=== PATIENT | female | born 1960 | race Caucasian/White ===

== ENCOUNTER → 2018-12-04 | Outpatient (CLI) | payer BC | LOC: M SMT 09:06 | PROVIDERS: ATTEND Specialist | DX: Z13.79 Encounter for other screening for genetic and chromosomal anomalies (principal) ==

== ENCOUNTER 2019-01-05 14:35 | Day surgery (SDC) | payer BC ==
[~2019-01-05] VITALS: Ht 175.3 cm; Wt 122.9 kg
[~2019-01-05 14:35] MED LIST: ALBU17IN2 INH; CYMB60CA3 PO; DITR5TAB PO; HYDR12CA PO; METF500T13 PO; MOBI4TAB PO; OMEP40CA2 PO; SIMV40TA2 PO
[2019-01-05 15:14] LABS: HEMATOCRIT 46.5 % (36.0-47.0); HEMOGLOBIN 15.4 g/dl (12.0-15.5); MEAN CORPUSCULAR HEMOGLOBIN 28.6 pg (27.0-33.0); MEAN CORPUSCULAR HGB CONC 33.1 g/dl (32.0-36.5); MEAN CORPUSCULAR VOLUME 86.3 fl (80.0-96.0); PLATELET COUNT, AUTOMATED 333 10^3/uL (150-450); RED BLOOD COUNT 5.39 10^6/uL (4.00-5.40); WHITE BLOOD COUNT 13.8 10^3/uL (4.0-10.0)
[2019-01-05] MEDS ORDERED: LR 1,000 ML IV ONE (15:15)
[2019-01-05] MEDS ORDERED: LIDOCAINE 2% INJ 100 MG/5 ML SDV (FOR ANES.) As Ordered ONE (16:07)
[2019-01-05] MEDS ORDERED: MIDAZOLAM INJ 2 MG/2 ML VIAL (J2250) As Ordered ONE (16:07)
[2019-01-05] MEDS ORDERED: PROPOFOL 200 MG/20 ML VIAL As Ordered ONE ×2 (16:07→16:31)
[2019-01-05] MEDS ORDERED: fentaNYL 100 MCG/2 ML INJECTION (J3010) As Ordered ONE (16:08)
[2019-01-05] MEDS ORDERED: KETOROLAC 60 MG/2 ML VIAL (J1885) As Ordered ONE (16:31)
[2019-01-05] MEDS ORDERED: ONDANSETRON 4MG/2ML VIAL (J2405) As Ordered ONE (16:31)
[2019-01-05] MEDS ORDERED: NORCO, ANEXSIA 5/325MG TABLET (HYDROcodone/ACETAMINOPHEN) PO PRN (17:15)
[2019-01-05] MEDS ORDERED: fentaNYL 100 MCG/2 ML INJECTION (J3010) IV PRN (17:15)
[2019-01-05] MEDS ORDERED: LR 1,000 ML IV SCH (17:15)
[2019-01-05] MEDS ORDERED: ONDANSETRON 4MG/2ML VIAL (J2405) IV PRN (17:15)
[2019-01-05 17:35] VITALS: BP 143/81
--- NOTE | 2019-01-06 08:43 | RO ---
DATE OF PROCEDURE: 01/05/2019 PREPROCEDURE DIAGNOSIS: Postmenopausal bleeding. POSTPROCEDURE DIAGNOSIS: Postmenopausal bleeding. PROCEDURE: Hysteroscopy, dilation and curettage, polypectomy. SURGEON: Dr. David Vieyra APRON CLEANER: ANESTHESIA: General endotracheal. ESTIMATED BLOOD LOSS: Minimal. FINDINGS: Moderately large endometrial polyp attached to the fundus; otherwise normal appearing endometrium. DESCRIPTION OF PROCEDURE: The patient was taken to the operating room where general endotracheal anesthesia was induced. She was prepped and draped in a sterile fashion in the dorsal lithotomy position. A speculum was placed in the vagina. The anterior lip of the cervix was grasped with a tenaculum. The cervix was dilated with tapered dilators. Diagnostic hysteroscope using normal saline as a distention medium was placed through the internal os. Visualization of the endometrial cavity revealed the findings noted above. Polyp forceps were inserted through the internal os and used to grasp the polyp. Polyp was twisted off at its base and removed in its entirety. Sharp curettage was performed and specimen sent to pathology. The hysteroscope was placed back in the endometrial cavity with normal findings. All instruments were removed. Sponge and instrument counts were correct.
== END 2019-01-05 18:00 | disposition home or self-care (01) ==
LOC: M SDC 14:35
PROVIDERS: ATTEND Specialist
DX: C54.1 Malignant neoplasm of endometrium (principal); E11.9 Type 2 diabetes mellitus without complications; K21.9 Gastro-esophageal reflux disease without esophagitis; F17.210 Nicotine dependence, cigarettes, uncomplicated; F41.9 Anxiety disorder, unspecified; F32.9 Major depressive disorder, single episode, unspecified; Z88.0 Allergy status to penicillin; Z88.2 Allergy status to sulfonamides; Z79.84 Long term (current) use of oral hypoglycemic drugs; Z79.899 Other long term (current) drug therapy; Z79.51 Long term (current) use of inhaled steroids
CPT/HCPCS: 36415; 58558; 85027; 88305; J1885; J2250; J2405; J3010

== ENCOUNTER → 2023-04-29 | Outpatient (CLI) | payer BC ==
[~2023-04-29] MED LIST changes: -ALBU17IN2 INH; +ALBU6.7H6 INH; -CYMB60CA3 PO; +CYMB60CA4 PO; -OMEP40CA2 PO; +OMEP40CA4 PO; -SIMV40TA2 PO; +SIMV40TA20 PO
== END ==
LOC: M WHC 08:30
PROVIDERS: ATTEND Physical Therapist
DX: Z12.31 Encounter for screening mammogram for malignant neoplasm of breast (principal)